=== PATIENT | female | born 1935 | race Caucasian/White ===

== ENCOUNTER → 2016-12-01 | Outpatient (CLI) | payer MEDICARE, OTHER | END | disposition home or self-care (01) | LOC: GMAH 07:07 | PROVIDERS: ATTEND Family Medicine | DX: E78.2 Mixed hyperlipidemia (principal) ==

== ENCOUNTER 2016-12-14 23:59 | Emergency (ER) | payer MEDICARE, OTHER ==
[2016-12-15] MEDS ORDERED: SODIUM CHLORIDE 0.9% (FLUSH) 10 ML SYG IV PRN ×2 (00:12→00:26)
--- NOTE | 2016-12-15 00:18 | ED.PDOC ---
History of Present Illness - General Chief Complaint: Cardiovascular Problem Stated Complaint: elevated heart rate Time Seen by Provider: 12/15/16 00:17 Source: patient, Vital Signs reviewed, family Exam Limitations: no limitations - History of Present Illness Initial Comments: Ms. Dinorah Dailey 81 y/o female with history of hypertension ,s/p cva with residual dysarthria stated that she had felt her heart was racing since this am while she was about to go to rest and sleep her symptoms still persistent decided to call up daughter and was then brought to [facility] ER.Denies chest pain, sob,weakness,fever and cough. Timing/Duration: other - 18 hours ago Severity: moderate Improving Factors: nothing Worsening Factors: nothing Associated Symptoms: denies symptoms Allergies/Adverse Reactions: Allergies Penicillin G Adverse Reaction (Verified 03/18/16 21:07) Home Medications: Ambulatory Orders Aspirin [Mike Low Dose] 81 mg PO DAILY 12/15/16 Atorvastatin Calcium [Lipitor] 80 mg PO DAILY 12/15/16 Hydrochlorothiazide 12.5 mg PO DAILY 12/15/16 Lisinopril [Zestril] 10 mg PO BID 12/15/16 Metoprolol Succinate [Metoprolol Succinate ER] 50 mg PO DAILY 12/15/16 Omeprazole [PriLOSEC Cap] 20 mg PO BID 12/15/16 amLODIPine BESYLATE [Norvasc] 5 mg PO DAILY 12/15/16 Review of Systems - Review of Systems Constitutional: States: no symptoms reported EENTM: States: no symptoms reported Respiratory: States: no symptoms reported Cardiology: States: see HPI Gastrointestinal/Abdominal: States: no symptoms reported Genitourinary: States: no symptoms reported Musculoskeletal: States: back pain - chronic lumbar-sciatica Skin: States: no symptoms reported Neurological: States: no symptoms reported, other - residual dysarthria Endocrine: States: no symptoms reported Hematologic/Lymphatic: States: no symptoms reported Past Medical History (General) - Patient Medical History Hx Stroke: Yes - residual dysarthria Hx Hypertension: Yes Surgical History: other - hysterectomy,right carotid endarterectomy - Vaccination History Hx Tetanus, Diphtheria Vaccination: No Hx Influenza Vaccination: No Hx Pneumococcal Vaccination: No - Social History Hx Tobacco Use: No Hx Alcohol Use: No Hx Substance Use: No Hx Substance Use Treatment: No Hx Depression: No - Activities of Daily Living Patient Lives Alone: Yes - at home Grooming Ability: Independent Eating (Feeding) Ability: Independent Toileting Ability: Independent - Female History Patient : No Family Medical History - Family History Mother Family History: No Known Hx Cardiac Disease: Yes - dad Hx Family;Other: Alzheimers Dementia-mom Physical Exam - Physical Exam General Appearance: Alert, Comfortable Eye Exam: bilateral normal Ears, Nose, Throat: hearing grossly normal, normal ENT inspection, normal pharynx Neck: non-tender, full range of motion, supple Respiratory: chest non-tender, lungs clear, normal breath sounds, no respiratory distress, no accessory muscle use Cardiovascular/Chest: normal peripheral pulses, no gallop, no murmur, tachycardia - heart 134 Peripheral Pulses: radial,right: 2+, radial,left: 2+ Gastrointestinal/Abdominal: normal bowel sounds, non tender, soft, no organomegaly, no pulsatile mass Back Exam: normal inspection, no CVA tenderness, no vertebral tenderness Extremity: normal range of motion, non-tender, normal inspection, no pedal edema Neurologic: no motor/sensory deficits, alert, normal mood/affect, oriented x 3 Progress - Results/Orders Results/Orders: 12/15/16 00:12 IV Care:Saline Lock per Protoc QSHIFT Telemetry .ONCE Sodium Chloride 0.9% (Flush) [Saline Flush Syringe] 10 ml IV PRN PRN EKG Stat Pulse Ox Stat 12/15/16 00:13 Pulse Oximetry Assessment DAILY 12/15/16 00:18 THYROID STIMULATING HORMONE Stat URINALYSIS Stat 12/15/16 00:26 IV Care:Saline Lock per Protoc QSHIFT Telemetry .ONCE 12/15/16 00:27 Pulse Oximetry Assessment DAILY 12/15/16 00:37 LACTIC ACID Stat Laboratory Results WBC 15.5 K/mm3 (4.8-10.8) H 12/15/16 00:12 RBC 4.89 M/mm3 (4.20-5.40) 12/15/16 00:12 Hgb 13.3 gm/dL (12.0-16.0) 12/15/16 00:12 Hct 41.0 % (36.0-47.0) 12/15/16 00:12 MCV 83.8 fl (81.0-99.0) 12/15/16 00:12 MCH 27.3 pg (27.0-31.0) 12/15/16 00:12 MCHC 32.5 g/dL (33.0-37.0) L 12/15/16 00:12 RDW 15.1 % (11.5-14.5) H 12/15/16 00:12 Plt Count 275 K/mm3 (130-400) 12/15/16 00:12 MPV 8.4 fl (7.40-10.4) 12/15/16 00:12 Absolute Neuts (auto) 11.30 K/uL (1.8-6.8) H 12/15/16 00:12 Absolute Lymphs (auto) 2.60 K/uL (1.0-3.4) 12/15/16 00:12 Absolute Monos (auto) 1.30 K/uL (0.2-0.8) H 12/15/16 00:12 Absolute Eos (auto) 0.10 K/uL (0.0-0.4) 12/15/16 00:12 Absolute Basos (auto) 0.20 K/uL (0.0-0.1) H 12/15/16 00:12 Neutrophils % 72.8 % (42.0-78.0) 12/15/16 00:12 Lymphocytes % 16.9 % (20.0-50.0) L 12/15/16 00:12 Monocytes % 8.7 % (2.0-9.0) 12/15/16 00:12 Eosinophils % 0.6 % (1.0-5.0) L 12/15/16 00:12 Basophils % 1.0 % (0.0-2.0) 12/15/16 00:12 PT 11.9 SECONDS (9.4-12.5) 12/15/16 00:12 INR 1.050 12/15/16 00:12 PTT (SP) 31.0 SECONDS (25.1-36.5) 12/15/16 00:12 D-Dimer, Quantitative 314 ng/mL (0-230) H* 12/15/16 00:26 Sodium 137 mmol/L (135-145) 12/15/16 00:12 Potassium 3.3 mmol/L (3.6-5.0) L 12/15/16 00:12 Chloride 102 mmol/L (101-111) 12/15/16 00:12 Carbon Dioxide 24 mmol/L (21-31) 12/15/16 00:12 Anion Gap 14.3 (12-18) 12/15/16 00:12 BUN 13 mg/dL (7-18) 12/15/16 00:12 Creatinine 1.00 mg/dL (0.6-1.3) 12/15/16 00:12 BUN/Creatinine Ratio 13.0 (10-20) 12/15/16 00:12 Random Glucose 146 mg/dL (70-105) H 12/15/16 00:12 Serum Osmolality 276.6 mOsm/L (275-295) 12/15/16 00:12 Calcium 9.7 mg/dL (8.4-10.2) 12/15/16 00:12 Magnesium 1.9 mg/dL (1.8-2.5) 12/15/16 00:12 Total Bilirubin 0.9 mg/dL (0.2-1.0) 12/15/16 00:12 Direct Bilirubin 0.2 mg/dL (0-0.2) 12/15/16 00:12 Indirect Bilirubin 0.7 mg/dL (0.2-0.8) 12/15/16 00:12 AST 22 IU/L (10-42) 12/15/16 00:12 ALT 16 IU/L (10-60) 12/15/16 00:12 Alkaline Phosphatase 97 IU/L (42-121) 12/15/16 00:12 Creatine Kinase 70 IU/L (26-140) 12/15/16 00:12 CK-MB (CK-2) 1.6 ng/mL (0.0-4.4) 12/15/16 00:12 CK-MB (CK-2) % Not Reportable 12/15/16 00:12 Troponin I 0.04 ng/mL (0.01-0.05) 12/15/16 00:12 B-Natriuretic Peptide 23.4 pg/ml (0-100) 12/15/16 00:12 Serum Total Protein 7.6 gm/dL (6.4-8.2) 12/15/16 00:12 Albumin 4.1 g/dl (3.2-5.5) 12/15/16 00:12 Troponin # 2- 0.07 - EKG/XRAY/CT EKG: Sinus, Tachy Comments: heart rate-134 XRAY: chest - no acute abnormality Departure - Departure Clinical Impression: Non-ST elevation SD (NSTEMI), Leukocytosis (leucocytosis), Sinus tachycardia Time of Disposition: - - [facility] accepting patient Disposition: Transfer to Hospital Condition: Fair Departure Forms: ED Discharge - Pt. Copy, Patient Portal Self Enrollment Referrals: Darwin Carrasco MD [Primary Care Provider] - 1-2 Weeks Home Medications: Ambulatory Orders Aspirin [Mike Low Dose] 81 mg PO DAILY 12/15/16 Atorvastatin Calcium [Lipitor] 80 mg PO DAILY 12/15/16 Hydrochlorothiazide 12.5 mg PO DAILY 12/15/16 Lisinopril [Zestril] 10 mg PO BID 12/15/16 Metoprolol Succinate [Metoprolol Succinate ER] 50 mg PO DAILY 12/15/16 Omeprazole [PriLOSEC Cap] 20 mg PO BID 12/15/16 amLODIPine BESYLATE [Norvasc] 5 mg PO DAILY 12/15/16
[2016-12-15] MEDS ORDERED: ASPIRIN TABLET 325 MG TAB ONE (00:20)
[2016-12-15] MEDS ORDERED: ONDANSETRON INJ 4 MG/2 ML VIAL IV ONE (00:26)
[2016-12-15] MEDS ORDERED: ASPIRIN TABLET 325 MG TAB PO ONE ×2 (00:26→00:28)
[2016-12-15] MEDS ORDERED: NITROGLYCERIN 0.4 MG 25 EA TAB SL ONE (00:26)
--- NOTE | 2016-12-15 00:41 | RAD ---
EXAM DESCRIPTION: Chest,1 View CLINICAL HISTORY: tachycardia COMPARISON: September 23, 2008 FINDINGS: Cardiac silhouette is within normal limits. Aorta is tortuous. There is atherosclerosis. EKG leads project over the chest. There is no focal parenchymal or pleural disease. There is no acute osseous process visualized. IMPRESSION: No evidence of acute cardiopulmonary disease. Electronically signed by: Melvin Jane MD 12/15/2016 12:40 AM CDT
[2016-12-15 02:13] VITALS: BP 131/85; TEMP 98.7; O2SAT 98
[2016-12-15] MEDS ORDERED: cefTRIAXone SODIUM 1 GM in SODIUM CHL 0.9% 50ML MIN-BAG+ 50 ML IVPB ONE (02:24)
[2016-12-15] MEDS ORDERED: cefTRIAXone SODIUM 1 GM VIAL ONE (02:34)
[2016-12-15] MEDS ORDERED: SODIUM CHL 0.9% 50ML MIN-BAG+ 50 ML IVPB ONE (02:34)
== END 2016-12-15 03:10 | disposition short-term general hospital (02) ==
LOC: ER 23:59
DX: I21.4 Non-ST elevation (NSTEMI) myocardial infarction (principal); D72.829 Elevated white blood cell count, unspecified; I69.922 Dysarthria following unspecified cerebrovascular disease; I10 Essential (primary) hypertension; Z88.0 Allergy status to penicillin; Z79.82 Long term (current) use of aspirin; Z79.899 Other long term (current) drug therapy
CPT/HCPCS: 36415; 36600; 71010; 80048; 80076; 81001; 82550; 82553; 82803; 82805; 83605; 83880; 84443; 84484; 85025; 85379; 85610; 85730; 87040; 93005; J0696; J7050

== ENCOUNTER 2016-12-29 16:26 | Observation (INO) | payer MEDICARE, OTHER ==
--- NOTE | 2016-12-29 17:06 | ED.PDOC ---
History of Present Illness - General Chief Complaint: General Stated Complaint: weakness Time Seen by Provider: 12/29/16 16:57 Source: patient, family Exam Limitations: no limitations - History of Present Illness Initial Comments: Ms. Dinorah Dailey 81 y/o female with hx of old cva,htn,and recent hospitalization in for tachycardia ,uti ,and elevated troponin underwent cardiac cath which according to family was negative for blockage was discharge with levaquin and zofran for uti and nausea.The last 4 days had been feeling weak(lousy) but able to do all his daily activities without much assistance and showered this am.She went to see her md jackson and lm palma w/joao were wnl. Timing/Duration: 1 week, changing over time Improving Factors: nothing Worsening Factors: nothing Associated Symptoms: denies symptoms Allergies/Adverse Reactions: Allergies Penicillin G Adverse Reaction (Verified 03/18/16 21:07) Home Medications: Ambulatory Orders Aspirin [Mike Low Dose] 81 mg PO DAILY 12/15/16 Atorvastatin Calcium [Lipitor] 80 mg PO DAILY 12/15/16 Hydrochlorothiazide 12.5 mg PO DAILY 12/15/16 Lisinopril [Zestril] 10 mg PO BID 12/15/16 Metoprolol Succinate [Metoprolol Succinate ER] 50 mg PO DAILY 12/15/16 Omeprazole [PriLOSEC Cap] 20 mg PO DAILY 12/15/16 amLODIPine BESYLATE [Norvasc] 5 mg PO DAILY 12/15/16 Review of Systems - Review of Systems Constitutional: States: weakness EENTM: States: no symptoms reported Respiratory: States: no symptoms reported Cardiology: States: no symptoms reported Gastrointestinal/Abdominal: States: no symptoms reported Genitourinary: States: no symptoms reported Musculoskeletal: States: no symptoms reported Endocrine: States: no symptoms reported Hematologic/Lymphatic: States: no symptoms reported Past Medical History (General) - Patient Medical History Hx Stroke: Yes - residual dysarthria Hx Congestive Heart Failure: No Hx Hypertension: Yes Hx Diabetes: No Surgical History: other - cardiac cath,carotid endarterectomy - Vaccination History Hx Tetanus, Diphtheria Vaccination: No Hx Influenza Vaccination: No Hx Pneumococcal Vaccination: No - Social History Hx Tobacco Use: No Hx Alcohol Use: No Hx Substance Use: No Hx Substance Use Treatment: No Hx Depression: No - Activities of Daily Living Patient Lives Alone: Yes - home Grooming Ability: Independent Eating (Feeding) Ability: Independent Toileting Ability: Independent - Female History Patient : No Family Medical History - Family History Mother Family History: No Known Hx Cardiac Disease: Yes - dad Hx Family;Other: Alzheimers Dementia-mom Physical Exam - Physical Exam General Appearance: Alert, No apparent distress Eye Exam: bilateral normal Ears, Nose, Throat: hearing grossly normal, normal ENT inspection, normal pharynx Neck: non-tender, full range of motion, supple, normal inspection Respiratory: chest non-tender, lungs clear, normal breath sounds, no respiratory distress Cardiovascular/Chest: normal peripheral pulses, regular rate, rhythm, no edema, no gallop Peripheral Pulses: radial,right: 2+, radial,left: 2+ Gastrointestinal/Abdominal: normal bowel sounds, non tender, soft, no organomegaly, no pulsatile mass Back Exam: normal inspection, no CVA tenderness, no vertebral tenderness Extremity: normal range of motion, non-tender, normal inspection, no calf tenderness Neurologic: no motor/sensory deficits, alert, normal mood/affect, oriented x 3, other - residual dysarthria old cva Skin Exam: normal color, warm/dry Lymphatic: no adenopathy Progress - Results/Orders Results/Orders: 12/29/16 18:02 Chest,1 View [RAD] Stat 12/29/16 18:20 URINALYSIS Stat Laboratory Results WBC 10.7 K/mm3 (4.8-10.8) 12/29/16 17:15 RBC 4.59 M/mm3 (4.20-5.40) 12/29/16 17:15 Hgb 12.7 gm/dL (12.0-16.0) 12/29/16 17:15 Hct 36.4 % (36.0-47.0) 12/29/16 17:15 MCV 79.4 fl (81.0-99.0) L 12/29/16 17:15 MCH 27.7 pg (27.0-31.0) 12/29/16 17:15 MCHC 34.9 g/dL (33.0-37.0) 12/29/16 17:15 RDW 14.1 % (11.5-14.5) 12/29/16 17:15 Plt Count 329 K/mm3 (130-400) 12/29/16 17:15 MPV 7.9 fl (7.40-10.4) 12/29/16 17:15 Absolute Neuts (auto) 8.00 K/uL (1.8-6.8) H 12/29/16 17:15 Absolute Lymphs (auto) 1.40 K/uL (1.0-3.4) 12/29/16 17:15 Absolute Monos (auto) 1.10 K/uL (0.2-0.8) H 12/29/16 17:15 Absolute Eos (auto) 0.20 K/uL (0.0-0.4) 12/29/16 17:15 Absolute Basos (auto) 0.10 K/uL (0.0-0.1) 12/29/16 17:15 Neutrophils % 74.3 % (42.0-78.0) 12/29/16 17:15 Lymphocytes % 12.6 % (20.0-50.0) L 12/29/16 17:15 Monocytes % 10.4 % (2.0-9.0) H 12/29/16 17:15 Eosinophils % 2.1 % (1.0-5.0) 12/29/16 17:15 Basophils % 0.6 % (0.0-2.0) 12/29/16 17:15 Sodium 118 mmol/L (135-145) L* 12/29/16 17:15 Potassium 3.2 mmol/L (3.6-5.0) L 12/29/16 17:15 Chloride 83 mmol/L (101-111) L 12/29/16 17:15 Carbon Dioxide 25 mmol/L (21-31) 12/29/16 17:15 Anion Gap 13.2 (12-18) 12/29/16 17:15 BUN 11 mg/dL (7-18) 12/29/16 17:15 Creatinine 0.83 mg/dL (0.6-1.3) 12/29/16 17:15 BUN/Creatinine Ratio 13.3 (10-20) 12/29/16 17:15 Random Glucose 116 mg/dL (70-105) H 12/29/16 17:15 Serum Osmolality 237.0 mOsm/L (275-295) L* 12/29/16 17:15 Calcium 9.2 mg/dL (8.4-10.2) 12/29/16 17:15 Total Bilirubin 0.8 mg/dL (0.2-1.0) 12/29/16 17:15 AST 23 IU/L (10-42) 12/29/16 17:15 ALT 20 IU/L (10-60) 12/29/16 17:15 Alkaline Phosphatase 87 IU/L (42-121) 12/29/16 17:15 Creatine Kinase 139 IU/L (26-140) 12/29/16 17:15 Serum Total Protein 7.0 gm/dL (6.4-8.2) 12/29/16 17:15 Albumin 4.0 g/dl (3.2-5.5) 12/29/16 17:15 Globulin 3.0 gm/dL (2.3-3.5) 12/29/16 17:15 Albumin/Globulin Ratio 1.3 (1.1-1.9) 12/29/16 17:15 Vital Signs - 24 hr 12/29/16 16:55 Temperature 98.2 F Pulse Rate [ 69 LEFT BRACHIAL] Respiratory 16 Rate Blood Pressure 151/85 [Left Arm] O2 Sat by Pulse 91 L Oximetry Departure - Departure Clinical Impression: Weakness generalized, Hyponatremia, Hypokalemia Time of Disposition: 18:46 - D[id number] Disposition: Discharge to Home or Self Care Condition: Fair Departure Forms: ED Discharge - Pt. Copy, Patient Portal Self Enrollment Referrals: Darwin Carrasco MD [Primary Care Provider] - 1-2 Weeks Home Medications: Ambulatory Orders Aspirin [Mike Low Dose] 81 mg PO DAILY 12/15/16 Atorvastatin Calcium [Lipitor] 80 mg PO DAILY 12/15/16 Hydrochlorothiazide 12.5 mg PO DAILY 12/15/16 Lisinopril [Zestril] 10 mg PO BID 12/15/16 Metoprolol Succinate [Metoprolol Succinate ER] 50 mg PO DAILY 12/15/16 Omeprazole [PriLOSEC Cap] 20 mg PO DAILY 12/15/16 amLODIPine BESYLATE [Norvasc] 5 mg PO DAILY 12/15/16
[2016-12-29] MEDS ORDERED: SODIUM CHLORIDE 0.9% 500ML 500 ML IVS PRN (18:49)
--- NOTE | 2016-12-29 18:51 | RAD ---
Procedure: XR CHEST 1 VIEW Exam Date: 12/29/2016 Ordering Provider: Sam Deal Clinical Indication: cough Comparison: 12/15/2016 Findings: The heart is not enlarged. Pulmonary vasculature is normal. Mediastinal contour is normal. Aortic calcification. There is no focal lung consolidation. No pleural effusion. There is no pneumothorax. There is no acute bony or soft tissue abnormality. Impression: 1. No acute abnormalities in the chest. Electronically signed by: Altaf Carmona MD 12/29/2016 6:51 PM CDT
[2016-12-29] MEDS ORDERED: SOD CHL 3% *HYPERTONIC* 500ML 300 ML IVS ONE (19:21)
[2016-12-29] MEDS ORDERED: POTASSIUM CHLORIDE 20 MEQ TAB PO ONE (19:22)
[2016-12-29] MEDS ORDERED: SODIUM CHLORIDE 0.9% (FLUSH) 10 ML SYG IV PRN (19:26)
[2016-12-29] MEDS ORDERED: ACETAMINOPHEN 325 MG TAB PO PRN (19:26)
[2016-12-29] MEDS ORDERED: IV SET AND CAP CHANGE INJ INJ SCH (19:30)
--- NOTE | 2016-12-29 19:54 | HP ---
SUPERVISING PHYSICIAN: Devendra Romero M.D. CHIEF COMPLAINT: Weakness. HISTORY OF PRESENT ILLNESS: Ms. Dailey is an 81 year-old female patient that had a recent hospitalization in [place] for tachycardia and a urinary tract infection. She did have an elevated troponin initially and went through a cardiac catheterization at which time per review of those medical records from Cardiology, there was no blockage and she had an estimated ejection fraction of 70%. She was noted to have a urinary tract infection and was started on Levaquin for 5 days, and was treated to completion. Upon discharge, she was encouraged to drink plenty of water throughout the day, which she did since discharge estimating that she drinks well over 4 to 5 large vessels of water measuring approximately 800 to 900 mL per glass. She also has a history of taking Hydrochlorothiazide. Family notes that over the last 4 days the patient has been feeling very poorly and today was unable to fully participate in her daily activities, and needed much assistance to even shower and to do anything that she normally does. She was brought to the Emergency Room by her family and laboratory studies indicated she had a sodium of 118 with potassium 3.2 upon admission showing also serum osmolality of 237. She does have a history of a past cerebrovascular accident with carotid stenosis with past CVA being in March 2016 with residual effects being dysarthria. Given the fact that the patient had a significant low sodium and potassium, Dr. Deal , physician in the Emergency Room, asked that the patient be placed in Observation for further treatment and evaluation for the hyponatremia. She was placed in Observation in stable condition. PAST MEDICAL HISTORY: 1. Cerebrovascular accident in 2016 with a residual dysarthria. 2. Hypertension. 3. Hypercholesterolemia. 4. Gastroesophageal reflux disease. PAST SURGICAL HISTORY: 1. Right endarterectomy. 2. Hysterectomy. 3. Tonsillectomy and adenoidectomy. 4. Appendectomy. HOME MEDICATIONS: 1. Lipitor 80 mg daily. 2. Aspirin 81 mg daily. 3. Norvasc 5 mg daily. 4. Prilosec 20 mg daily. 5. Metoprolol succinate extended release 50 mg daily. 6. Zestril 10 mg daily. 7. Hydrochlorothiazide 12.5 mg daily. ALLERGIES: PENICILLIN G. FAMILY HISTORY: Significant for myocardial infarctions, cerebrovascular accidents and Alzheimer's. SOCIAL HISTORY: The patient is retired. She lives in [place]. She is . She has never drank nor smoked tobacco. REVIEW OF SYSTEMS: CONSTITUTIONAL: Noted weakness in History of Present Illness. Denies any fever or chills. HEENT: Denies any headaches or vision changes, syncopal episodes, nasal congestion, sore throat. RESPIRATORY: Denies any shortness of breath, cough, wheezing. CARDIOVASCULAR: Denies any chest pains or syncopal episodes. GASTROINTESTINAL: Denies any nausea or vomiting, diarrhea. GENITOURINARY: Recent urinary tract infection but denies any current symptoms of dysuria or hematuria. MUSCULOSKELETAL: No complaints. NEUROLOGIC: Noted history of feeling weak, but no significant neurological weakness other than residual dysarthria from previous stroke in 2016. PHYSICAL EXAMINATION: VITAL SIGNS: Temperature 97.4, pulse 64, blood pressure 140/69, respirations 20 , O2 sat 98% on room air. Admission weight 58.8 kg. GENERAL: The patient appears to be well hydrated, well nourished in no acute distress. Very pleasant, alert and oriented. HEENT: Tympanic membranes are clear bilaterally. Oropharynx is pink and moist without any lesions. There is no jugular venous distention. CHEST: Lungs are clear to auscultation bilaterally without any rhonchi, wheezing or rales. CARDIOVASCULAR: Regular rate and rhythm without appreciable murmurs, gallops, or rubs. ABDOMEN: Soft, non-tender. Positive bowel sounds. EXTREMITIES: No clubbing, cyanosis or edema. NEUROLOGIC: There are no sensory or motor deficits. She is alert and oriented times three. There is notable residual dysarthria from the previous CVA. Cranial nerves II-XII are grossly intact. Facial features do show just a very mild asymmetry to the right side of the mouth but no noted nystagmus or other asymmetry. Extraocular movements are within normal limits. No ataxia is noted. LABORATORY: CBC shows to be within normal limits with white count 10.7, hemoglobin 12.7, hematocrit 36.4, platelet count 329,000. Differential is within normal limits. Chemistries show sodium 118, potassium 3.2, carbon dioxide 25, BUN 11, creatinine 0.83, glucose 116, serum osmolality 237, calcium 9.2, magnesium 1.9. Liver functions all show to be within normal limits. BNP was normal at 20. Urinalysis showed a specific gravity of 1.015, and everything else was within normal limits. RADIOLOGY: Chest x-ray per radiology interpretation showed no acute abnormalities in the chest. ASSESSMENT: 1. Generalized weakness, acute onset likely secondary to hyponatremia. 2. Electrolyte imbalance with moderate hyponatremia and hypokalemia possibly secondary to medication regimen to include hydrochlorothiazide and excessive free water intake from treatment post urinary tract infection. 3. History of cerebrovascular accident in March 2016 with residual effect to include dysarthria. 4. Hypertension. 5. Increased hypercholesterolemia. 6. Gastroesophageal reflux disease. PLAN: The patient will be placed in Observation tonight and started on 3% saline slowly for a volume of 300 mL over the next 6 hours. She will be closely monitored on telemetry and will plan to repeat her laboratory studies in the morning. She is encouraged to increase the salt in her daily intake and monitor, and maintain hydration but do so in moderation. She will be started on her medications except for noted change to her Hydrochlorothiazide. Will start on DVT prophylaxis per protocol. Anticipate length of stay to be 1 to 2 days. Will plan to reevaluate sodium in the morning with a BMP and as well, if able to get a Physical Therapy consultation to assess the patient's ability to ambulate safely in anticipation of discharge later tomorrow. Until discharge, will continue to follow the patient closely and treat appropriately. #[id number] [facility]
[2016-12-29] MEDS: LISINOPRIL 10 MG TAB PO SCH (21:13)
[2016-12-30 06:10] VITALS: TEMP 97.8
[2016-12-30] MEDS ORDERED: ATORVASTATIN 20 MG TAB PO ONE (07:36)
[2016-12-30] MEDS ORDERED: METOPROLOL SUCCINATE XL 50 MG TAB PO SCH (09:00)
[2016-12-30] MEDS ORDERED: ASPIRIN EC 81 MG TAB PO SCH (09:00)
[2016-12-30] MEDS ORDERED: amLODIPine BESYLATE 5 MG TAB PO SCH (09:00)
[2016-12-30] MEDS ORDERED: OMEPRAZOLE CAP 20 MG CAP PO SCH (09:00)
[2016-12-30] MEDS ORDERED: SODIUM CHLORIDE 0.9% (FLUSH) 10 ML SYG IV SCH (09:00)
[2016-12-30] MEDS: LISINOPRIL 10 MG TAB PO SCH (09:29)
[2016-12-30 10:02] VITALS: BP 138/73; O2SAT 96
[2016-12-30] MEDS ORDERED: ATORVASTATIN 20 MG TAB PO SCH (21:00)
--- NOTE | 2017-01-01 13:30 | DS ---
SUPERVISING PHYSICIAN: Devendra Romero MD DISCHARGE DIAGNOSIS: 1. Generalized weakness, acute onset, likely secondary to hyponatremia. 2. Electrolyte imbalance with moderate hyponatremia and hypokalemia, possibly secondary to medication regimen to include hydrochlorothiazide and excessive free water intake from treatment post urinary tract infection. 3. 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 4. Hypertension. 5. Increased hypercholesterolemia. 6. Gastroesophageal reflux disease. HISTORY OF PRESENT ILLNESS: Ms. Dailey is an 81-year-old, female patient that had a recent hospitalization in [place] for tachycardia and a urinary tract infection. She did have an elevated troponin initially and went through a cardiac catheterization at which time per review of those medical records from Cardiology, there was no blockage and she had an estimated ejection fraction of 70%. She was noted to have a urinary tract infection and was started on Levaquin for 5 days, and was treated to completion. Upon discharge, she was encouraged to drink plenty of water throughout the day, which she did since discharge estimating that she drinks well over 4 to 5 large vessels of water measuring approximately 800 to 900 mL per glass. She also has a history of taking hydrochlorothiazide. Family notes that over the last 4 days , the patient has been feeling very poorly and today, was unable to fully participate in her daily activities, and needed much assistance to even shower and to do anything that she normally does. She was brought to the Emergency Room by her family and laboratory studies indicated she had a sodium of 118 with potassium 3.2 upon admission showing also serum osmolality of 237. She does have a history of a past cerebrovascular accident with carotid stenosis with past CVA being in March 2016 with residual effects being dysarthria. Given the fact that the patient had a significant low sodium and potassium, Dr. Deal , physician in the Emergency Room, asked that the patient be placed in Observation for further treatment and evaluation for the hyponatremia. She was placed in Observation in stable condition. LABORATORY: White count on admission 10.7, hemoglobin 12.7, hematocrit 36.4, platelet count 39,000, differential without a left shift. Chemistries initially showed sodium 118, potassium 3.2, serum osmolality 237. After treatment with 3% hypertonic saline, at discharge her sodium had improved to 126. Symptoms had improved. Potassium normalized to 4.1 after potassium replacement. Serum osmolality was 252. BUN 11, creatinine 0.98. BNP 20. Urinalysis on admission was within normal limits. MICROBIOLOGY: No specimens were submitted. RADIOLOGY: Chest x-ray per radiology interpretation showed no acute abnormalities in the chest. HOSPITAL COURSE: Ms. Dailey was admitted as noted in history of present illness on 12/29/16 for hyponatremia and weakness. She was provided IV fluids to include 3% hypertonic saline as well as normal saline and showed good improvement in her sodium. Her clinical symptoms had essentially resolved and she was able to fully participate with evaluation by physical therapy and was felt strong enough to be discharged home and stable. PLAN: The patient was discharged on 12/30/16 with instructions to followup with her primary care provider in 7 to 10 days, earlier if needed, and to call on Sunday to get an appointment with Dr. Carrasco. She is to resume her home medications as directed, noting that she was to hold her hydrochlorothiazide, her water pill, until she could be seen by Dr. Carrasco. She was to use caution when changing position and to go slowly to prevent falls. She was encouraged to drink fluids in moderation to prevent both dehydration and excessive fluid intake. She was told she could drink her pickle juice in moderation as well and return to the hospital should she have any change in her condition or failure to show improvement. Diet at discharge was regular diet as tolerated. Activity to increase as tolerated. Condition at discharge was stable. No new medications were added at discharge. She was instructed to hold her hydrochlorothiazide until see in followup. Date #[id number] [facility]
== END 2016-12-30 12:45 | disposition home or self-care, planned readmission (81) ==
LOC: ER 16:26 → MS 19:48 → UNDOADMIN 19:48 → UNDODISIN 12-30 12:45
PROVIDERS: ADMIT Nurse Practitioner Family; ATTEND Nurse Practitioner Family
DX: E87.1 Hypo-osmolality and hyponatremia (principal); E87.6 Hypokalemia; R53.1 Weakness; I10 Essential (primary) hypertension; I69.322 Dysarthria following cerebral infarction; E78.00 Pure hypercholesterolemia, unspecified; K21.9 Gastro-esophageal reflux disease without esophagitis; Z79.82 Long term (current) use of aspirin; Z79.899 Other long term (current) drug therapy; Z88.0 Allergy status to penicillin; Z87.440 Personal history of urinary (tract) infections; Z90.49 Acquired absence of other specified parts of digestive tract; Z90.710 Acquired absence of both cervix and uterus; Z82.49 Family history of ischemic heart disease and other diseases of the circulatory system; Z82.3 Family history of stroke; Z81.8 Family history of other mental and behavioral disorders
CPT/HCPCS: 36415 ×2; 71010; 80048; 80053; 81001; 82550; 83735; 83880; 85025; 94760 ×2; 96360; 96361 ×2; 97162; 99284; G0378; G8978; G8979; G8980; J7040; J7799

== ENCOUNTER → 2017-03-05 | Outpatient (CLI) | payer MEDICARE, OTHER | END | disposition home or self-care (01) | LOC: LAB.O 08:48 | PROVIDERS: ATTEND Family Medicine | DX: E78.2 Mixed hyperlipidemia (principal); I10 Essential (primary) hypertension ==

== ENCOUNTER 2018-01-25 06:05 | Observation (INO) | payer MEDICARE, OTHER ==
[2018-01-25] MEDS ORDERED: VERAPAMIL HCL 40 MG TAB PO ONE (06:38)
--- NOTE | 2018-01-25 06:43 | ED.PDOC ---
History of Present Illness - General Source: patient Exam Limitations: no limitations - History of Present Illness Initial Comments: the patient is an 83-year-old female brought into the emergency room by family this morning secondary to feeling of palpitations. family and her primary care doctor had been adjusting on her blood pressure medication for the last month. She had been on a beta kaity for approximately 2 years prior to that since having a stroke. She had noted multiple symptoms and they finally correlated it to the beta kaity that she was on. Over the last month they have been changing beta blockers around and adjusting doses. Finally on Sunday they discontinued the beta kaity completely. Apparently Sunday her blood pressure did well but her heart rate started creeping up and her blood pressure started creeping up along with her heart rate. She is not having any chest pain or shortness of breath. No syncope or near syncope. Timing/Duration: unsure Severity: mild Improving Factors: nothing Worsening Factors: nothing Associated Symptoms: other - anxiety <Raul Garrido - Last Filed: 01/25/18 06:40> <Brandon Higginbotham - Last Filed: 01/25/18 08:12> - General Chief Complaint: Cardiovascular Problem Stated Complaint: heart racing Time Seen by Provider: 01/25/18 06:22 - History of Present Illness Allergies/Adverse Reactions: Allergies Levofloxacin [From Levaquin] Adverse Reaction (Verified 12/29/16 21:04) Penicillin G Adverse Reaction (Verified 03/18/16 21:07) Home Medications: Ambulatory Orders Aspirin [Mike Low Dose] 81 mg PO DAILY 12/15/16 Atorvastatin Calcium [Lipitor] 80 mg PO DAILY 12/15/16 Lisinopril [Zestril] 10 mg PO BID 12/15/16 Metoprolol Succinate [Metoprolol Succinate ER] 50 mg PO DAILY 12/15/16 Omeprazole [Prilosec Cap] 20 mg PO DAILY 12/15/16 amLODIPine BESYLATE [Norvasc] 5 mg PO DAILY 12/15/16 Review of Systems - Review of Systems Constitutional: States: no symptoms reported EENTM: States: no symptoms reported Respiratory: States: no symptoms reported Cardiology: States: palpitations Gastrointestinal/Abdominal: States: no symptoms reported Genitourinary: States: no symptoms reported Musculoskeletal: States: no symptoms reported Skin: States: no symptoms reported Neurological: States: no symptoms reported Endocrine: States: no symptoms reported All other Systems: No Change from Baseline <Raul Garrido - Last Filed: 01/25/18 06:40> Past Medical History (General) - Patient Medical History Hx Seizures: No Hx Stroke: Yes - 2016 Hx Asthma: No Hx of COPD: No Hx Congestive Heart Failure: No Hx Pacemaker: No Hx Hypertension: Yes Hx Diabetes: No Hx Gastroesophageal Reflux: Yes Hx MRSA: No Surgical History: appendectomy, tonsillectomy, Hysterectomy, other - Vaccination History Hx Tetanus, Diphtheria Vaccination: No Hx Influenza Vaccination: No Hx Pneumococcal Vaccination: No - Social History Hx Tobacco Use: No Hx Alcohol Use: No Hx Substance Use: No Hx Substance Use Treatment: No Hx Depression: No Hx Physical Abuse: No Hx Emotional Abuse: No - Female History Patient : No <Raul aGrrido - Last Filed: 01/25/18 06:40> Family Medical History - Family History Mother Family History: No Known Hx Cardiac Disease: Yes - dad Hx Family;Other: Alzheimers Dementia-mom <Raul Garrido - Last Filed: 01/25/18 06:40> Physical Exam - Physical Exam General Appearance: Alert, Anxious - mild, Comfortable, No apparent distress Eye Exam: bilateral normal Ears, Nose, Throat: normal ENT inspection, normal pharynx, other - hearing is chronically decreased bilaterally. She does have some dysarthria persisting from her previous stroke. Neck: full range of motion, supple Respiratory: lungs clear, normal breath sounds, no respiratory distress, no accessory muscle use Cardiovascular/Chest: normal peripheral pulses, no edema, tachycardia - but appears to be sinus tachycardia based on telemetry and EKG. She does have a significant murmur that I believe is systolic. 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 She does have chronic changes from her previous stroke. Skin Exam: normal color Comments: Vital Signs - 24 hr 01/25/18 01/25/18 06:19 06:27 Temperature 98.5 F Pulse Rate 118 H Pulse Rate [ 134 H 136 H apical] Pulse Rate [ 116 H 116 H left] Respiratory 18 18 Rate Blood Pressure 174/83 [left] O2 Sat by Pulse 98 Oximetry <Raul Garrido L - Last Filed: 01/25/18 06:40> Progress - Progress Progress: 01/25/18 06:48 the patient is an 83-year-old female presenting to the emergency room secondary to a sensation of palpitations that has been worsening over the last 24-48 hours. The patient has, likely not coincidentally, recently come off of her beta kaity medications entirely due to side effects. It does appear that the tachycardia is a long-standing issue. She does not appear to be having any chest pain. No shortness of breath. Family is not interested in a trial of Bystolic. Laboratory work has been sent. Chest x-ray has been ordered. Additional workup just to rule out other possible cardiac causes as she does have some significant past medical history. She has been given 80 mg of verapamil by mouth as a trial to see what this does with her heart rate. Family has been informed that the calcium channel kaity class should help some but may not work quite as well as the beta blockers, especially with exertion and anxiety. they understand and agree to the trial. She is normally on a dose of Norvasc. If they are going to continue with a longer prescription of the verapamil then consideration should of course be given to reducing or discontinuing the Norvasc. dr suzy higginbotham will be taking over care of this patient at shift change. Currently she does not appear to be in any distress. 01/25/18 06:50 - Results/Orders Results/Orders: EKG shows sinus tachycardia rate of 124 bpm. Normal axis. Normal R-wave progression. No acute ST segment changes immediately concerning for ischemia. Normal QT interval. - EKG/XRAY/CT CT Ordered: No CT Interpretation Call Back: No <Raul Garrido L - Last Filed: 01/25/18 06:40> - Results/Orders Results/Orders: PT STILL TACHYCARDIC, HAVE REVIEWED CHART AND EXAMINED PT. AGREE WITH PREVIOUS DOCUMENTATION. TILT NEG. MOD HYPONATREMIA. EKG UNCHANGED FROM 12.15.2016 - EKG/XRAY/CT XRAY: chest - KARINA <Brandon Higginbotham - Last Filed: 01/25/18 08:12> Departure <Raul Garrido - Last Filed: 01/25/18 06:40> - Departure Time of Disposition: 08:11 - D/W ENRIQUE WILL ADMIT <Brandon Higginbotham - Last Filed: 01/25/18 08:12> - Departure Clinical Impression: Tachycardia, Palpitations Hypertension Qualifiers: Hypertension type: essential hypertension Qualified Code(s): I10 - Essential ( primary) hypertension Disposition: Admit Patient Condition: Good Departure Forms: ED Discharge - Pt. Copy, Patient Portal Self Enrollment Instructions: DI for Palpitations Referrals: Darwin Carrasco MD [Primary Care Provider] - 1-2 Weeks Home Medications: Ambulatory Orders Aspirin [Mike Low Dose] 81 mg PO DAILY 12/15/16 Atorvastatin Calcium [Lipitor] 80 mg PO DAILY 12/15/16 Lisinopril [Zestril] 10 mg PO BID 12/15/16 Metoprolol Succinate [Metoprolol Succinate ER] 50 mg PO DAILY 12/15/16 Omeprazole [Prilosec Cap] 20 mg PO DAILY 12/15/16 amLODIPine BESYLATE [Norvasc] 5 mg PO DAILY 12/15/16
--- NOTE | 2018-01-25 07:01 | RAD ---
EXAM: Single view chest. INDICATION: Palpitations. COMPARISON: Chest x-ray: 12/29/2016. FINDINGS: Cardiac silhouette: Unremarkable. Mandi: Unremarkable. Lobar consolidation: None. Pleural effusion: None. Pneumothorax: None. Other: None. Bones: Unremarkable. Other: None. IMPRESSION: 1. No acute cardiopulmonary process. Electronically signed by: Ramon Agosto MD 01/25/2018 7:00 AM CDT Workstation: [id number]
--- NOTE | 2018-01-25 08:48 | HP ---
SUPERVISING PHYSICIAN: CHIEF COMPLAINT: High heart rate and elevated blood pressure. HISTORY OF PRESENT ILLNESS: This is an 83-year-old female who came to the Emergency Room this morning secondary to feeling palpitations. For the past two days, her heart rate, per her blood pressure monitor, has gone up into the 150s. This morning, her blood pressure was in the 200s and diastolic in the 100s. She said it usually is not that high and systolic blood pressure usually runs in the 150s to 160s. She sees Dr. Carrasco as her primary care physician. Over the past few weeks, he has been adjusting her blood pressure and heart rate medications due to some adverse reactions to her beta kaity. She was originally on metoprolol and then was changed to Coreg. She continued to have the adverse reactions. She stopped taking her Coreg on Sunday and came into the Emergency Room today due to the elevated heart rate. In the Emergency Room , they gave her a dose of verapamil. Her heart rate got as high as 136 in the Emergency Room. After taking the verapamil it came down to 102 to 103. Her blood pressures started out at 174/83 and her heart rate showed sinus tachycardia on the monitor. Due to the difficulty in controlling her heart rate as well as failing her outpatient treatment for her heart rate, I was called for admission to the hospital. PAST MEDICAL HISTORY: 1. Cerebrovascular accident. 2. Hypertension. 3. Gastroesophageal reflux disease. 4. Hyperlipidemia. 5. Osteoarthritis. 6. Sinus tachycardia. 7. History of hyponatremia. PAST SURGICAL HISTORY: 1. Appendectomy. 2. Hysterectomy. 3. Tonsillectomy and adenoidectomy. 4. Carotid endarterectomy. OUTPATIENT MEDICATIONS: Per the EMR and awaiting verification. ALLERGIES: PENICILLIN, DOPAMINE. ADVERSE REACTIONS: BETA BLOCKERS. SOCIAL HISTORY: She denies any tobacco, ETOH or illicit drug use. REVIEW OF SYSTEMS: GENERAL: Negative for fever, fatigue or weight changes. HEENT: Negative for sinus symptoms, ear pain, vision changes or sore throat. RESPIRATORY: Negative for wheezing, coughing or shortness of breath. CARDIAC: As per history of present illness. GASTROINTESTINAL: Negative for nausea, vomiting, diarrhea, constipation. MUSCULOSKELETAL: Negative for arthralgias, myalgias or back pain. NEUROLOGIC: Positive for headaches and dizziness when taking beta blockers. Negative for weakness or seizures. PHYSICAL EXAMINATION: VITAL SIGNS: Afebrile. Heart rate 104. Blood pressure 145/64. Respiratory rate 20. O2 saturation 93% on room air. GENERAL: This is an 83-year-old female patient lying in her hospital bed. She is in no acute distress. HEENT: Normocephalic, atraumatic. She does have a slight facial droop to the left. Oropharynx is clear. NECK: Supple without mass. RESPIRATORY: Essentially clear to auscultation bilaterally. CHEST: There is equal rise and fall of the chest with inspiration and expiration. CARDIOVASCULAR: Tachycardic rate and regular rhythm. GASTROINTESTINAL: Abdomen is soft, nondistended, nontender. Bowel sounds are positive. EXTREMITIES: No cyanosis, clubbing or edema. NEUROLOGIC: Awake, alert and oriented times three. She does have some difficulty speaking clearly as a residual from her prior cerebrovascular accident. LABORATORY: CBC is basically within normal limits. PT 12.2, INR 1.0, PTT 30.5. Sodium 130, potassium 3.7, chloride 95, carbon dioxide 25, BUN 10, creatinine 1.02, glucose 141, serum osmolality 262.2. Cardiac enzymes are negative. Liver enzymes are within normal limits. TSH is 1.27. Urinalysis is within normal limits. Chest x-ray shows no acute cardiopulmonary process. All other labs and films have been reviewed via the EMR. ASSESSMENT: 1. Sinus tachycardia, most likely related to inability to take rate control medications, mainly beta blockers. 2. Hypertensive urgency with history of hypertension. 3. Adverse reactions to beta blockers with subsequent difficulty controlling heart rate. 4. Mild hyponatremia with a history of hyponatremia. 5. History of cerebrovascular accident. 6. Gastroesophageal reflux disease. PLAN: We have placed the patient in observation. We will monitor her heart rate. I spoke with her primary care physician, Dr. Carrasco, and we will plan to put her on verapamil 80 mg t.i.d. and will adjust the dosage as necessary. She can followup with him as well as her telecommunications field technician, Dr. Colin Reynoso. We will discontinue all beta blockers. I will restart her home medications. She is on Lovenox for DVT prophylaxis and Protonix for ulcer prophylaxis. We will monitor the patient closely and follow as needed. Dr. Romero is the collaborating physician and available for consultation. #[id number] [facility]
[2018-01-25] MEDS ORDERED: IV SET AND CAP CHANGE INJ INJ SCH (09:30)
[2018-01-25] MEDS ORDERED: ATORVASTATIN 20 MG TAB PO SCH (09:45)
[2018-01-25] MEDS: ENOXAPARIN SODIUM 40 MG/0.4 ML SYG SUBCU SCH (10:50)
[2018-01-25] MEDS: SODIUM CHLORIDE 0.9% (FLUSH) 10 ML SYG IV PRN ×2 (10:50→21:03)
[2018-01-25] MEDS: PANTOPRAZOLE SODIUM IV 40 MG VIAL IV SCH (10:50)
[2018-01-25] MEDS: amLODIPine BESYLATE 5 MG TAB PO SCH (11:02)
[2018-01-25] MEDS: VERAPAMIL HCL 40 MG TAB PO SCH ×3 (14:08→21:03)
[2018-01-25] MEDS: ATORVASTATIN 20 MG TAB PO SCH (21:02)
[2018-01-25] MEDS: LISINOPRIL 10 MG TAB PO SCH (21:02)
[2018-01-26] MEDS: amLODIPine BESYLATE 5 MG TAB PO SCH (08:51)
[2018-01-26] MEDS: LISINOPRIL 10 MG TAB PO SCH ×2 (08:51→20:50)
[2018-01-26] MEDS: hydroCHLOROthiazide 12.5 MG CAP PO SCH (08:51)
[2018-01-26] MEDS: VERAPAMIL HCL 40 MG TAB PO SCH ×3 (08:51→20:49)
[2018-01-26] MEDS: ENOXAPARIN SODIUM 40 MG/0.4 ML SYG SUBCU SCH ×2 (08:52→08:57)
[2018-01-26] MEDS: SODIUM CHLORIDE 0.9% (FLUSH) 10 ML SYG IV PRN ×2 (10:47→21:00)
[2018-01-26] MEDS: PANTOPRAZOLE SODIUM IV 40 MG VIAL IV SCH (10:47)
--- NOTE | 2018-01-26 14:53 | PN ---
DATE: 01/26/18 SUPERVISING PHYSICIAN: Devendra Romero M.D. SUBJECTIVE: The patient is lying in bed. Her daughter is at the bedside. No complaints of shortness of breath, nausea, vomiting, dizziness, weakness or chest pain. She did refuse Lovenox this morning. She understands complications for pulmonary embolism. OBJECTIVE: VITAL SIGNS: She is afebrile, heart rate 86, blood pressure 156/83, respiratory rate 18, O2 sat is 96% on room air. RESPIRATORY: Essentially clear to auscultation bilaterally. CARDIAC: Regular rate and rhythm. EXTREMITIES: No cyanosis, clubbing or edema. NEUROLOGIC: She is awake, alert and oriented times three. LABORATORY: CBC is basically within normal limits. CMP is basically within normal limits with the exception of her sodium is slightly low at 131. All other labs and films have been reviewed via the EMR. ASSESSMENT: 1. Sinus tachycardia, most likely related to inability to take rate control medications, mainly beta blockers. 2. Hypertensive urgency with history of hypertension that has now improved. 3. Adverse reactions to beta blockers with subsequent difficulty controlling heart rate. 4. Mild hyponatremia with a history of hyponatremia. 5. History of cerebrovascular accident. 6. Gastroesophageal reflux disease. PLAN: We will continue present supportive care. I will monitor her heart rate again overnight as it has been staying in the 80s and 90s for now. She has not ambulated in the hallways yet, so I will make sure she does that at least 4 or 5 times per day. We will monitor her heart rate and blood pressure during those times. I will hold off on doing any lab in the morning as those are mostly stable. She does have a history of mild hyponatremia. The verapamil is working well at the present dosing of 80 mg t.i.d. She will have her beta blockers discontinued and she will be discharged on the verapamil with close followup with her primary care physician, Dr. Carrasco. Otherwise we will continue to monitor the patient closely and follow as needed. Dr. Romero is the collaborating physician available for consultation. #[id number] [facility]
[2018-01-26] MEDS: ATORVASTATIN 20 MG TAB PO SCH (20:49)
[2018-01-26] MEDS ORDERED: NON-FORMULARY MEDICATION 1 EA MIS PO SCH (21:00)
[2018-01-27] MEDS: PANTOPRAZOLE SODIUM IV 40 MG VIAL IV SCH (09:36)
[2018-01-27] MEDS: VERAPAMIL HCL 40 MG TAB PO SCH (09:37)
[2018-01-27] MEDS: hydroCHLOROthiazide 12.5 MG CAP PO SCH (09:37)
[2018-01-27] MEDS: amLODIPine BESYLATE 5 MG TAB PO SCH (09:37)
[2018-01-27] MEDS: LISINOPRIL 10 MG TAB PO SCH (09:37)
[2018-01-27] MEDS: ENOXAPARIN SODIUM 40 MG/0.4 ML SYG SUBCU SCH (09:38)
[2018-01-27 10:25] VITALS: BP 146/77; TEMP 97.5; O2SAT 95
[2018-01-27] MEDS ORDERED: NON-FORMULARY MEDICATION 1 EA MIS PO SCH (19:45)
--- NOTE | 2018-01-27 20:02 | DS ---
SUPERVISING PHYSICIAN: Devendra Romero M.D. DISCHARGE DIAGNOSIS: 1. Sinus tachycardia, most likely related to inability to take rate control medications, mainly beta blockers. 2. Hypertensive urgency with history of hypertension that has now improved. 3. Adverse reactions to beta blockers with subsequent difficulty controlling heart rate. 4. Mild hyponatremia with a history of hyponatremia. 5. History of cerebrovascular accident. 6. Gastroesophageal reflux disease. HISTORY OF PRESENT ILLNESS: This is an 83-year-old female patient who came to the Emergency Room on the date of admission due to palpitations. For two days previous to her admission, her heart rate had gone up into the 150s and she had stopped taking her beta kaity on Sunday. The morning of admission, her systolic blood pressure was in the 200s and diastolic in the 100s. Her heart rate was again up to the 150s. Her primary care physician is Dr. Carrasco and over the past few weeks they have been adjusting her blood pressure medications. She had an adverse reaction to Metoprolol and then was changed to Coreg. She continued to have the adverse reactions so she stopped taking her Coreg. In the Emergency Room, she received an initial dose of verapamil. After taking the Verapamil her heart rate was down to 102. Her initial blood pressure in the Emergency Room was 174/83. She did show sinus tachycardia on the phototypesetting equipment monitor. Due to her failing outpatient treatment for her heart rate, she was admitted to the hospital. HOSPITAL COURSE: She was started on verapamil 80 mg b.i.d. Over the course of the next 2 days she remained afebrile. Her heart rate varied between 64 and 116 , but in the last 24 hours her heart rate has been 63 to 103. She has tolerated the medication without any problems. Her blood pressure in the last 24 hours has run between 156/83 and 108/69. She has walked in the hallways. She has complained of no adverse reactions to the medications and she will be discharged home today. DISCHARGE PLAN: The patient will be discharged home in stable condition. She is to resume her previous activity as well as her previous medications with the exception that she is to discontinue her beta blockers and to start her verapamil. She is to have a followup appointment with Dr. Carrasco next week. She it to call his office or return to the hospital for any further problems or complications. DISCHARGE MEDICATIONS: 1. Amlodipine. 2. Prilosec. 3. Zestril. 4. Lipitor. 5. Low dose aspirin. 6. Hydrochlorothiazide. 7. Estazolam. 8. Verapamil 80 mg every [address] Romero is the collaborating physician available for consultation. #[id number] [facility]
== END 2018-01-27 12:12 | disposition home or self-care (01) ==
LOC: ER 06:05 → MS 08:47
PROVIDERS: ADMIT Nurse Practitioner Acute Care; ATTEND Nurse Practitioner Acute Care
DX: I16.0 Hypertensive urgency (principal); I10 Essential (primary) hypertension; R00.0 Tachycardia, unspecified; T44.7X5A Adverse effect of beta-adrenoreceptor antagonists, initial encounter; E87.1 Hypo-osmolality and hyponatremia; K21.9 Gastro-esophageal reflux disease without esophagitis; E78.5 Hyperlipidemia, unspecified; M19.90 Unspecified osteoarthritis, unspecified site; Z79.82 Long term (current) use of aspirin; Z79.899 Other long term (current) drug therapy; Z88.0 Allergy status to penicillin; Z86.73 Personal history of transient ischemic attack (TIA), and cerebral infarction without residual deficits; Y92.009 Unspecified place in unspecified non-institutional (private) residence as the place of occurrence of the external cause
CPT/HCPCS: 96372; 96374; 96376 ×2; J1650; 82553; 80053 ×2; 36415 ×2; 81001; 85025 ×2; 82550; 83735; 85730; 85610; 84443; 84484; 83880; 71045; 94760 ×12; 99285; 93005; G0378

== ENCOUNTER → 2018-03-13 | Outpatient (CLI) | payer MEDICARE, OTHER | LOC: GMAH 10:42 | PROVIDERS: ATTEND Family Medicine | DX: I10 Essential (primary) hypertension (principal) ==

== ENCOUNTER 2018-08-05 05:33 | Day surgery (SDC) | payer MEDICARE, OTHER ==
[2018-08-05] MEDS ORDERED: TROP 1%/CYCLOPEN 1%/PHENYL 2% DROPS ONE (05:48)
[2018-08-05] MEDS ORDERED: PROPARACAINE 0.5% OPHTH SOL 15 ML BTTL ONE ×2 (05:48→08:46)
[2018-08-05] MEDS ORDERED: MIDAZOLAM INJ 2 MG/2 ML VIAL ONE (06:41)
[2018-08-05] MEDS ORDERED: PROPARACAINE 0.5% OPHTH SOL 15 ML BTTL RIGHT_EYE ONE (07:40)
[2018-08-05] MEDS ORDERED: LIDOCAINE 1% 2 ML VIAL INJ ONE (07:48)
[2018-08-05] MEDS ORDERED: DEXAMETHASONE 0.1% OPHTH SOL 1 DROP RIGHT_EYE ONE ×2 (07:49→08:04)
[2018-08-05] MEDS ORDERED: BRIMONIDINE 0.2% OPHTH DROPS RIGHT_EYE ONE ×2 (07:49→08:04)
[2018-08-05] MEDS ORDERED: TOBRAMYCIN SULF 0.3 % OPHT SOL 1 DROP RIGHT_EYE ONE ×2 (07:49→08:04)
== END 2018-08-05 08:40 | disposition home or self-care (01) ==
LOC: AMB 05:33
PROVIDERS: ATTEND Ophthalmology
DX: H25.9 Unspecified age-related cataract (principal); I10 Essential (primary) hypertension; Z88.0 Allergy status to penicillin; Z88.8 Allergy status to other drugs, medicaments and biological substances; Z79.899 Other long term (current) drug therapy
CPT/HCPCS: 00142; 66984; J2250

== ENCOUNTER → 2019-03-24 | Outpatient (CLI) | payer MEDICARE, OTHER | LOC: GMAH 11:56 | PROVIDERS: ATTEND Family Medicine | DX: I10 Essential (primary) hypertension (principal) ==

== ENCOUNTER 2019-11-24 05:33 | Day surgery (SDC) | payer MEDICARE, OTHER ==
[2019-11-24] MEDS ORDERED: MIDAZOLAM INJ 2 MG/2 ML VIAL ONE (07:04)
[2019-11-24] MEDS ORDERED: PROPARACAINE 0.5% OPHTH SOL 15 ML BTTL LEFT_EYE ONE (10:07)
[2019-11-24] MEDS ORDERED: DEXAMETHASONE 0.1% OPHTH SOL 1 DROP LEFT_EYE ONE ×2 (10:21→10:27)
[2019-11-24] MEDS ORDERED: LIDOCAINE 1% MPF 2 ML VIAL INJ ONE (10:21)
[2019-11-24] MEDS ORDERED: MOXIFLOXACIN HCL (OPHTH) 1 DROP DROPS LEFT_EYE ONE ×2 (10:21→10:27)
[2019-11-24] MEDS ORDERED: TOBRAMYCIN SULF 0.3 % OPHT SOL 1 DROP LEFT_EYE ONE ×2 (10:22→10:27)
[2019-11-24] MEDS ORDERED: BRIMONIDINE 0.2% OPHTH DROPS LEFT_EYE ONE ×2 (10:22→10:27)
== END 2019-11-24 11:04 | disposition home or self-care (01) ==
LOC: AMB 05:33
PROVIDERS: ATTEND Ophthalmology
DX: H25.12 Age-related nuclear cataract, left eye (principal); I10 Essential (primary) hypertension; Z79.82 Long term (current) use of aspirin; Z79.899 Other long term (current) drug therapy
CPT/HCPCS: 66984; J2250

== ENCOUNTER 2020-02-02 05:30 | Day surgery (SDC) | payer MEDICARE, OTHER ==
[2020-02-02] MEDS ORDERED: TROP1%/CYCLOPEN 1%/PHENYL 2.5% DROPS OPHTH ONE (05:31)
[2020-02-02] MEDS ORDERED: MOXIFLOXACIN HCL (OPHTH) 1 DROP DROPS ONE (05:47)
[2020-02-02] MEDS ORDERED: PROPARACAINE 0.5% OPHTH SOL 15 ML BTTL ONE (05:48)
[2020-02-02] MEDS ORDERED: PROPARACAINE 0.5% OPHTH SOL 15 ML BTTL RIGHT_EYE ONE (07:10)
== END 2020-02-02 07:21 | disposition home or self-care (01) ==
LOC: AMB 05:30
PROVIDERS: ATTEND Ophthalmology
DX: H26.491 Other secondary cataract, right eye (principal); I10 Essential (primary) hypertension; Z79.82 Long term (current) use of aspirin; Z79.899 Other long term (current) drug therapy; Z88.1 Allergy status to other antibiotic agents; Z88.0 Allergy status to penicillin; Z88.8 Allergy status to other drugs, medicaments and biological substances

== ENCOUNTER → 2020-02-05 | Outpatient (CLI) | payer MEDICARE, OTHER | LOC: GMA MATASK 11:35 | PROVIDERS: ATTEND Family Medicine | DX: E87.1 Hypo-osmolality and hyponatremia (principal) ==

== ENCOUNTER → 2020-04-14 | Outpatient (CLI) | payer MEDICARE, OTHER | LOC: GMA MATASK 10:51 | PROVIDERS: ATTEND Family Medicine | DX: I10 Essential (primary) hypertension (principal) ==

== ENCOUNTER → 2020-07-21 | Outpatient (CLI) | payer MEDICARE, OTHER | LOC: GMA MATASK 11:08 | PROVIDERS: ATTEND Family Medicine | DX: I10 Essential (primary) hypertension (principal) ==